=== PATIENT | female | born 1935 | race Caucasian/White ===

== ENCOUNTER 2020-04-27 14:18 | Outpatient (CLI) | payer MEDICARE ==
[2020-04-27] MEDS ORDERED: ASPI-496 PO (16:03)
[2020-04-27] MEDS ORDERED: LEVO112T4 PO (16:03)
[2020-04-27] MEDS ORDERED: ATEN25TA PO (16:03)
[2020-04-28] MEDS ORDERED: UBID100C24 PO (16:01)
[2020-04-28] MEDS ORDERED: Vitamin D3 PO (16:01)
[2020-04-28] MEDS ORDERED: NIAC500T9 PO (16:01)
[2020-04-28] MEDS ORDERED: Vitamin A PO (16:01)
[2020-04-28] MEDS ORDERED: ASCO500T8 PO (16:01)
[2020-04-28] MEDS ORDERED: MAGN500C9 PO (16:01)
[2020-04-28] MEDS ORDERED: VITAMIN B PO (16:01)
== END 2020-04-27 23:59 | disposition home or self-care (01) ==
LOC: STAR 14:18
PROVIDERS: ATTEND Orthopaedic Surgery
DX: Z01.818 Encounter for other preprocedural examination (principal); G56.03 Carpal tunnel syndrome, bilateral upper limbs
CPT/HCPCS: 93005

== ENCOUNTER 2020-05-05 10:16 | Day surgery (SDC) | payer MEDICARE ==
[~2020-05-05] VITALS: Ht 165.1 cm; Wt 65.0 kg
[~2020-05-05 10:16] MED LIST: ASCO500T8 PO; ASPI-496 PO; ATEN25TA PO; LEVO112T4 PO; MAGN500C9 PO; NIAC500T9 PO; UBID100C24 PO; VITAMIN B PO; Vitamin A PO; Vitamin D3 PO
[2020-05-05] MEDS ORDERED: CHLORHEXIDINE 15 ML UDC MM STA (10:53)
[2020-05-05] MEDS ORDERED: BUPIVACAINE/PF 0.5% ONE (11:13)
[2020-05-05] MEDS ORDERED: BETAMETHASONE 6 MG/ML, 5ML IM ONE (11:13)
[2020-05-05] MEDS ORDERED: LIDOCAINE 1%, 20ML ONE (11:13)
[2020-05-05] MEDS ORDERED: FENTANYL PF 100 MCG/2ML ONE (11:19)
[2020-05-05] MEDS ORDERED: PROPOFOL 10 MG/ML, 20ML ONE ×2 (11:20→11:48)
[2020-05-05] MEDS ORDERED: LACTATED RINGERS 1,000 ML IV SCH (11:47)
[2020-05-05] MEDS ORDERED: MEPERIDINE/PF 25MG/0.5ML IVPush PRN (12:00)
[2020-05-05] MEDS ORDERED: PROMETHAZINE 12.5 MG SUPP PR PRN (12:00)
[2020-05-05] MEDS ORDERED: FENTANYL PF 100 MCG/2ML IV PRN (12:00)
[2020-05-05] MEDS ORDERED: OXYcodone 5 MG/5 ML ORAL.SOL UDC PO PRN (12:00)
[2020-05-05] MEDS ORDERED: CEFAZOLIN 1,000 MG ONE (12:07)
== END 2020-05-05 14:00 | disposition home or self-care (01) ==
LOC: OUT 10:16
PROVIDERS: ATTEND Orthopaedic Surgery
DX: G56.03 Carpal tunnel syndrome, bilateral upper limbs (principal); M19.90 Unspecified osteoarthritis, unspecified site; Z72.89 Other problems related to lifestyle; Z88.2 Allergy status to sulfonamides; Z88.8 Allergy status to other drugs, medicaments and biological substances; Z88.5 Allergy status to narcotic agent; Z79.899 Other long term (current) drug therapy; Z90.49 Acquired absence of other specified parts of digestive tract; Z90.710 Acquired absence of both cervix and uterus; Z98.890 Other specified postprocedural states; Z87.891 Personal history of nicotine dependence
CPT/HCPCS: 64721; J0690; J2704; J3010; J7120; J0702

== ENCOUNTER → 2020-12-27 | Outpatient (CLI) | payer MEDICARE | END | disposition home or self-care (01) | LOC: CFH 09:57 | PROVIDERS: ATTEND Internal Medicine Cardiovascular Disease | DX: E78.5 Hyperlipidemia, unspecified (principal); I34.0 Nonrheumatic mitral (valve) insufficiency; I35.1 Nonrheumatic aortic (valve) insufficiency; R06.00 Dyspnea, unspecified; R07.9 Chest pain, unspecified; M41.84 Other forms of scoliosis, thoracic region; M47.814 Spondylosis without myelopathy or radiculopathy, thoracic region | CPT/HCPCS: 71046 ==

== ENCOUNTER → 2021-06-21 | Outpatient (CLI) | payer MEDICARE | END | disposition home or self-care (01) | LOC: CVU 13:34 | PROVIDERS: ATTEND Internal Medicine Cardiovascular Disease | DX: I08.0 Rheumatic disorders of both mitral and aortic valves (principal) | CPT/HCPCS: 93306; 93356 ==